=== PATIENT | male | born 2005 | race Caucasian/White ===

== ENCOUNTER 2024-11-21 14:14 | Emergency (ER) | payer OTHER ==
[2024-11-21] MEDS: Diphtheria,Pertussis(Acell),Tetanus Vaccine 0.5 ML Syringe IM ONE (16:17)
[2024-11-21] MEDS: Lidocaine/Epineph/Tetracaine 3 ML Syringe TOP STA (16:17)
[2024-11-21] MEDS ORDERED: Sodium Chloride 0.9% 20 ML SDV IV PRN (16:26)
[2024-11-21] MEDS ORDERED: Sodium Chloride 0.9% 2.5 ML Syringe FLUSH PRN (16:26)
[2024-11-21] MEDS ORDERED: Sodium Chloride 0.9% 10 ML Syringe FLUSH PRN (16:26)
[2024-11-21] MEDS: ceFAZolin 2 GM in Water For Injection, Sterile 20 ML IVPUSH ONE (17:08)
[2024-11-21] MEDS: Ondansetron 4 MG/2 ML SDV IVPUSH ONE (17:08)
[2024-11-21] MEDS: Morphine 4 MG/ML Syringe IVPUSH ONE (17:08)
[2024-11-21] MEDS: Lidocaine 2% 5 ML SDV INJECT ONE (17:46)
== END 2024-11-21 20:03 ==
LOC: MW.ED 14:14
DX: S62.633A Displaced fracture of distal phalanx of left middle finger, initial encounter for closed fracture (principal); F17.210 Nicotine dependence, cigarettes, uncomplicated; Z88.0 Allergy status to penicillin; Z23 Encounter for immunization; W23.0XXA Caught, crushed, jammed, or pinched between moving objects, initial encounter
CPT/HCPCS: 73130; 90471; 90715; 96374; 96375; 99284; A9270; J0690; J2003; J2270; J2405